=== PATIENT | male | born 1950 | race Caucasian/White ===

== ENCOUNTER 2018-01-29 13:49 | Inpatient (IN) | payer BC ==
[~2018-01-29] VITALS: Ht 182.9 cm; Wt 95.7 kg
[~2018-01-29 13:49] MED LIST: CARISOPRODOL 3350 MG PO; DESYREL150 MG PO; FLOMAX0.4 MG PO; LORTAB 5 MG/5001 TAB PO; WELLBUTRIN XL300 M1 PO
[2018-01-29 14:00] VITALS: BP 145/73
[2018-01-29] MEDS ORDERED: LIORESAL 10 MG10 MG PO (14:03)
[2018-01-29] MEDS ORDERED: LISINOPRIL10 MG PO (14:03)
[2018-01-29 15:15] LABS: ABSOLUTE EOSINOPHILS 0.3 thou/uL (0.0-0.7); ABSOLUTE MONOCYTES 0.9 thou/uL (0.0-1.2); BASOPHILS 0.5 %; EOSINOPHILS 3.2 %; HEMATOCRIT 42.2 % (42.0-52.0); HEMOGLOBIN 14.8 gm/dL (14.0-18.0); LYMPHOCYTES 24.3 %; MCH 31.5 pg (26.0-34.0); MCHC 35.1 g/dL (28.0-37.0); MPV 8.4 fl. (7.2-11.1); NUCLEATED RBCS 0 /100WBC; PLATELET COUNT* 226 thou/uL (150-400); RBC 4.69 mil/uL (4.50-6.00); RDW-CV 13.7 % (10.5-14.5); WBC 8.1 thou/uL (4.0-11.0)
[2018-01-29 15:22] LABS: CALCIUM 9.7 mg/dL (8.5-10.1); POTASSIUM 3.6 mmol/L (3.5-5.1)
[2018-01-29 15:26] LABS: ALBUMIN 3.6 g/dL (3.4-5.0); TOTAL BILIRUBIN 0.3 mg/dL (<0.1-1.0); TOTAL PROTEIN 7.5 g/dL (6.4-8.2)
[2018-01-29 17:25] VITALS: BP 189/110
[2018-01-29 21:00] VITALS: BP 152/81
[2018-01-30 03:25] VITALS: BP 130/72
[2018-01-30 08:00] VITALS: BP 169/92
[2018-01-30 08:07] LABS: HEMATOCRIT 44.1 % (42.0-52.0); HEMOGLOBIN 15.3 gm/dL (14.0-18.0); MCH 31.2 pg (26.0-34.0); MCHC 34.6 g/dL (28.0-37.0); MCV 90.1 fL (80.0-100.0); MPV 8.7 fl. (7.2-11.1); RBC 4.9 mil/uL (4.50-6.00); RDW-CV 13.6 % (10.5-14.5); WBC 6.5 thou/uL (4.0-11.0)
[2018-01-30 08:30] LABS: CALCIUM 9.5 mg/dL (8.5-10.1); MAGNESIUM 2.4 mg/dL (1.8-2.4); POTASSIUM 3.8 mmol/L (3.5-5.1)
[2018-01-30 17:00] VITALS: BP 108/91; BP 180/91
[2018-01-30 23:41] VITALS: BP 138/85
[2018-01-31 04:01] LABS: HEMATOCRIT 41.7 % (42.0-52.0); HEMOGLOBIN 14.5 gm/dL (14.0-18.0); MCH 31.3 pg (26.0-34.0); MCHC 34.6 g/dL (28.0-37.0); MCV 90.4 fL (80.0-100.0); MPV 8.6 fl. (7.2-11.1); RBC 4.62 mil/uL (4.50-6.00); RDW-CV 13.6 % (10.5-14.5); WBC 6.9 thou/uL (4.0-11.0)
[2018-01-31 04:28] LABS: MAGNESIUM 2.3 mg/dL (1.8-2.4); POTASSIUM 3.9 mmol/L (3.5-5.1)
[2018-01-31 08:20] VITALS: BP 157/87
[2018-01-31 17:35] VITALS: BP 170/90
[2018-01-31 19:41] VITALS: BP 179/89
[2018-01-31 23:49] VITALS: BP 140/75
[2018-02-01 08:45] VITALS: BP 148/95
[2018-02-01] MEDS ORDERED: MINOCYCLINE HC100 M2 PO (11:06)
[2018-02-01 11:07] VITALS: BP 148/95
--- NOTE | 2018-03-07 14:47 | CON ---
[address] [address] CONSULTATION Name: GEE AMBROSE Room: [address] IN .R.#: [id number] Admission: 01/29/18 Attend Phys: Sage Alcaraz, Discharge: 02/01/18 Date of : 54 Report #: [id number] THIS REPORT FOR: //name// CC: Eliecer Alcaraz DATE OF SERVICE: 01/30/2018 REASON FOR CONSULTATION: I was asked to evaluate the patient concerning right upper arm soft tissue abscess and cellulitis. HISTORY OF PRESENT ILLNESS: The patient is a 68-year-old who developed increased pain and erythematous nodule to the inner aspect of his upper right arm last week. This then progressed. He was seen in the outpatient department and placed on topical steroid. This continued to worsen and 2 days ago was seen in the outpatient clinic where incision and drainage was performed. Cultures were obtained. Given a dose of ceftriaxone and placed on Bactrim. No improvement over the next 24 hours. Hospitalized on 01/29/2018, placed on vancomycin. Continues to have drainage from the wound. No fever, chills or sweats. No specific injury noted. No prior history of skin or soft tissue abscesses. He is a nonsmoker with no diabetes. Does work in the yard on occasion. No specific tick or insect bites. PAST MEDICAL HISTORY: Back surgery, herniorrhaphy, tonsillectomy, deviated septum repair, gastroesophageal reflux with peptic ulcer disease, parathyroidectomy, nephrolithiasis. ALLERGIES: PENICILLIN WITH RASH, ALTHOUGH HE DOES TOLERATE AMOXICILLIN. MEDICATIONS: Included Flomax, Zestril, trazodone, Bactrim, now on vancomycin. FAMILY HISTORY: Noncontributory. SOCIAL HISTORY: No significant alcohol intake. Nonsmoker. REVIEW OF SYSTEMS: Negative for any cardiopulmonary, GI or complaints. PHYSICAL EXAMINATION: VITAL SIGNS: He is afebrile and hemodynamically stable. He was hypertensive earlier. HEENT: Unremarkable. NECK: Supple. LUNGS: Clear. HEART: Regular. ABDOMEN: Soft and nontender. SKIN: Notes an abscess with packing in place right [place] [address] CONSULTATION Name: ARNOLGEE Kinsey Room: [address]#: [id number] Admission: 01/29/18 Attend Phys: Sage Alcaraz, Discharge: 02/01/18 Date of : 54 Report #: [id number] Surrounding erythema consistent with cellulitis. No tender adenopathy in the axilla. Sensation in the hand intact. Pulses in the wrist normal. Range of motion in the shoulder and the arm unremarkable. LABORATORY STUDIES: Hemoglobin 15, WBC 6.5, platelet count 226,000. Creatinine 1. Liver function tests normal. IMPRESSION: A 68-year-old with soft tissue abscess, right upper inner arm. Most likely staphylococcal infection. Could be community-acquired methicillin-resistant Staphylococcus aureus. Recommend continuing vancomycin and packing the wound. We will obtain outside culture results that were obtained 48 hours ago. Hopefully, by Wednesday we will have these results. Then can proceed with outpatient treatment. <ELECTRONICALLY SIGNED> By: Slick Vallejo MD 03/07/18 1447 1408 2219Slick Vallejo MD /nt
== END 2018-02-01 13:22 | disposition home or self-care (01) | DRG 603 ==
LOC: M.ERS 13:49 → M.3W 15:52 → M.TBA-ER 15:52 → M.3W 17:06
PROVIDERS: Nurse Practitioner Family; ADMIT Family Medicine
DX: L03.113 Cellulitis of right upper limb (principal); L02.413 Cutaneous abscess of right upper limb; K21.9 Gastro-esophageal reflux disease without esophagitis; E89.0 Postprocedural hypothyroidism; I10 Essential (primary) hypertension; Z87.11 Personal history of peptic ulcer disease; Z87.442 Personal history of urinary calculi; Z88.0 Allergy status to penicillin; Z88.1 Allergy status to other antibiotic agents; Z79.899 Other long term (current) drug therapy

== ENCOUNTER → 2018-10-19 | Outpatient (CLI) | payer BC ==
[~2018-10-19] MED LIST changes: +LIORESAL 10 MG10 MG PO; +LISINOPRIL10 MG PO; +MINOCYCLINE HC100 M2 PO
--- NOTE | 2018-10-21 15:02 | SLEEP ---
[address] [address] SLEEP STUDY REPORT Name: GEE AMBROSE Room: [facility]#: [id number] Admission: 10/19/18 Attend Phys: Beronica Rai DO Discharge: Date of : 54 Report #: [id number] THIS REPORT FOR: //name// CC: Beronica Rai DO Eliecer Joseph This study has been reviewed in its entirety by a board certified sleep specialist DATE OF SERVICE: 10/19/2018 ATTENDING PHYSICIAN: Dr. Beronica Rai. The patient is 68 years old who weighs 220 pounds with a BMI of 29.8. The patient underwent diagnostic study performed at [facility]. During the night study, the patient spent 485 minutes in bed and slept for 354 minutes with a sleep efficiency of 73%. Sleep latency was 60 minutes with a REM latency of 155 minutes. Overall, sleep architecture showed normal stage 1 and stage 2 sleep, normal slow wave and normal REM sleep. During the night study, the patient had 1 obstructive apnea, no mixed or central apneas and 119 hypopneas. The patient's apnea hypopnea index was 20 per hour with a REM index of 36 per hour and a supine index of 66 per hour. Nocturnal oximetry study revealed an average oxygen saturation of 94%, with a lowest of 83%. Ten minutes were spent at an oxygen saturation of less than 89%. EKG monitoring revealed normal sinus rhythm. Average heart rate 55 beats per minute. No sustained arrhythmias observed. PLMS were seen at an index of 34 per hour and 14 per hour caused EEG arousals. The patient met the criteria for CPAP initiation, but it was late in the night of the study. As a result, CPAP could not be initiated. IMPRESSION: 1. Moderate sleep apnea-hypopnea syndrome with worsening during REM and supine sleep. Total AHI at 20 per hour, with a REM AHI of 36 per hour and a supine AHI of 66 per hour. 2. Mild nocturnal hypoxia secondary to obstructive sleep apnea. 3. Moderate PLMS. RECOMMENDATIONS: [place] [address] SLEEP STUDY REPORT Name: GEE AMBROSE Room: [facility]#: [id number] Admission: 10/19/18 Attend Phys: Beronica Rai DO Discharge: Date of : 54 Report #: [id number] 1. The patient would benefit from return to the sleep lab for CPAP titration. 2. Once optimal CPAP pressure is achieved, then follow up in 4-6 weeks to assess compliance with CPAP and to document clinical improvement. 3. Weight loss is strongly advised. 4. Avoid supine sleep. 5. Avoid NUCLEAR CONTROL ROOM OPERATOR depressants. 6. Cautioned regarding driving until symptoms of sleep apnea have resolved with the use of CPAP. 7. The patient should also be further evaluated for symptoms of restless legs during the day. <ELECTRONICALLY SIGNED> By: Moose Younger MD 10/21/18 1502 1320 1351Aman Jamar Younger MD /nt
== END ==
LOC: M.SLEEPLAB 19:39
DX: G47.33 Obstructive sleep apnea (adult) (pediatric) (principal); Z13.220 Encounter for screening for lipoid disorders; G47.61 Periodic limb movement disorder; G47.34 Idiopathic sleep related nonobstructive alveolar hypoventilation; R06.83 Snoring; I15.9 Secondary hypertension, unspecified; Z87.891 Personal history of nicotine dependence; Z79.899 Other long term (current) drug therapy; J32.9 Chronic sinusitis, unspecified

== ENCOUNTER → 2018-11-16 | Outpatient (CLI) | payer BC, MEDICARE ==
--- NOTE | 2018-11-17 14:54 | SLEEP ---
[address] [address] SLEEP STUDY REPORT Name: GEE AMBROSE Room: [facility]#: [id number] Admission: 11/16/18 Attend Phys: Beronica Rai DO Discharge: Date of : 54 Report #: [id number] THIS REPORT FOR: //name// CC: Beronica Ria DO Eliecer Joseph This study has been reviewed in its entirety by a board certified sleep specialist DATE OF SERVICE: 11/16/2018 ATTENDING PHYSICIAN: Beronica Rai DO The patient is a 68-year-old who weighs 228 pounds with a BMI of 29.8. The patient has history of sleep apnea and was referred for CPAP titration study. Results of diagnostic study were not available at the time of dictation. During the night of the study, the patient spent 411 minutes in bed and slept for 371 minutes with a sleep efficiency of 90%. Sleep latency was 6.7 minutes with a REM latency of 64 minutes. Overall sleep architecture showed normal stage 1 and stage 2 sleep, increased N3 sleep and normal REM sleep. EKG monitoring revealed an average heart rate of 52 beats per minute. No sustained arrhythmias observed. PLMS were seen at an index of 24 per hour and 7 per hour caused EEG arousals. The patient was started on CPAP at 5 cm water and titrated up to 7 cm water. At the final pressure, the patient slept for 204 minutes. The patient had 48 minutes of lateral REM sleep. The patient's AHI was reduced to 0 per hour and oxygen saturation remained above 90%. IMPRESSION: 1. Sleep apnea diagnosed previously. 2. Moderate periodic limb movements of sleep. RECOMMENDATIONS: 1. CPAP at 7 cm water completely eliminated the patient's sleep apnea and should be used on a nightly basis. 2. Follow up in 4-6 weeks to assess compliance with CPAP and to document clinical improvement. 3. Weight loss is strongly advised. 4. Avoid GENERAL DENTIST/OWNER depressants. 5. Cautioned regarding driving until symptoms of sleep apnea have resolved [place] [address] SLEEP STUDY REPORT Name: GEE AMBROSE Room: [facility]#: [id number] Admission: 11/16/18 Attend Phys: Beronica Rai DO Discharge: Date of : 54 Report #: [id number] 6. PLMS does not need to be treated unless the patient has symptoms of restless legs during the day. <ELECTRONICALLY SIGNED> By: Moose Younger MD 11/17/18 1454 1301 1420Moose Younger MD /nt
== END ==
LOC: M.SLEEPLAB 11-09 21:00
DX: G47.30 Sleep apnea, unspecified (principal); G47.61 Periodic limb movement disorder; Z68.29 Body mass index [BMI] 29.0-29.9, adult

== ENCOUNTER 2020-01-22 16:37 | Inpatient (IN) | payer MEDICARE ==
[~2020-01-22] VITALS: Ht 182.9 cm; Wt 99.8 kg
[2020-01-22 16:47] VITALS: BP 179/131
[2020-01-22 17:09] LABS: ABSOLUTE BASOPHILS 0.1 thou/uL (0.0-0.2); ABSOLUTE EOSINOPHILS 0.3 thou/uL (0.0-0.7); ABSOLUTE MONOCYTES 0.8 thou/uL (0.0-1.2); ABSOLUTE NEUTROPHILS 4.7 thou/uL (1.6-8.1); BASOPHILS 0.7 %; HEMATOCRIT 44.6 % (42.0-52.0); HEMOGLOBIN 15.5 gm/dL (14.0-18.0); LYMPHOCYTES 25.4 %; MCH 31.4 pg (26.0-34.0); MCHC 34.8 g/dL (28.0-37.0); MCV 90.4 fL (80.0-100.0); MONOCYTES 9.9 %; MPV 8.7 fl. (7.2-11.1); NUCLEATED RBCS 0 /100WBC; PLATELET COUNT* 189 thou/uL (150-400); RBC 4.93 mil/uL (4.50-6.00); WBC 7.8 thou/uL (4.0-11.0)
[2020-01-22 17:18] LABS: CALCIUM 8.7 mg/dL (8.5-10.1); CREATININE 1.2 mg/dL (0.6-1.3); POTASSIUM 3.5 mmol/L (3.5-5.1)
[2020-01-22 17:20] LABS: APTT 27.1 Seconds (25.0-31.3); PROTIME 10.7 Seconds (9.20-11.50)
[2020-01-22 17:28] LABS: ALBUMIN 3.8 g/dL (3.4-5.0); MAGNESIUM 2.2 mg/dL (1.8-2.4); TOTAL BILIRUBIN 0.5 mg/dL (<0.1-1.0); TOTAL PROTEIN 7.7 g/dL (6.4-8.2)
[2020-01-22 18:58] LABS: URINE BILIRUBIN NEGATIVE (Negative); URINE BLOOD TRACE (Negative); URINE CLARITY CLEAR; URINE COLOR YELLOW; URINE GLUCOSE-RANDOM NEGATIVE (Negative); URINE KETONES NEGATIVE (Negative); URINE LEUKOCYTES-REFLEX NEGATIVE (Negative); URINE NITRITE-REFLEX NEGATIVE (Negative); URINE PROTEIN 1+ (Negative); URINE UROBILINOGEN 0.2 E.U./dl (0.2-1.0)
--- NOTE | 2020-01-22 19:05 | NUR ---
#2 NITROGLYCERIN 0.4MG SL GIVEN--B/P 148/105
[2020-01-22 19:52] VITALS: BP 142/91
[2020-01-22 20:45] VITALS: BP 134/100
--- NOTE | 2020-01-22 20:45 | NUR ---
RECEIVED REPORT AND TO ROOM. NO ACUTE DISTRESS. TELEMETRY APPLIED AND SHOWING A-FIB WITH RATE 130'S. DENIES CHEST PAIN OR SOA. O2 ON AT 2L/NC. PT HAS HX OF MRSA IN WOUND SO PLACED INTO ISOLATION. DISCUSSED POSS OF PROCEDURE TOMORROW SO NPO AFTER MN. SEE ADMISSION ASSESSMENT AND HX. WILL CONT TO MONITOR AND ASSIST NEEDED.
[2020-01-23 00:41] VITALS: BP 124/84
[2020-01-23 05:18] VITALS: BP 135/94
--- NOTE | 2020-01-23 05:33 | NUR ---
SLEPT WELL TONIGHT. TELEMETRY CONT TO SHOW A-FIB WITH RATE STILL IN 130'S WITH CARDIZEM GTT INFUSING AT 15 MG/HR. DENIES CP OR SOA. HS GOALS OF REST AND SAFETY ACHIEVED.
[2020-01-23 06:19] LABS: CALCIUM 8.5 mg/dL (8.5-10.1); MAGNESIUM 2.1 mg/dL (1.8-2.4); POTASSIUM 3.4 mmol/L (3.5-5.1)
[2020-01-23 08:00] VITALS: BP 142/97
[2020-01-23 09:36] LABS: CHOLESTEROL 140 mg/dL (<200); HDL CHOLESTEROL 52 mg/dL (>40); LDL CHOLESTEROL 78 mg/dL (<100); TC:HDL 2.7 Ratio (Not establshd); TRIGLYCERIDE 50 mg/dL (<150); VLDL 10 mg/dL (<40)
[2020-01-23 09:37] LABS: SERUM ASSESSMENT Clear
[2020-01-23 12:19] VITALS: BP 134/100
--- NOTE | 2020-01-23 15:32 | NUR ---
CM spoke with Pt via phone. Pt is A&O. Resides at home with his . Independent. Pt uses a cpap at night. No hx of HH or SNF. Goal is home at id. Following.
--- NOTE | 2020-01-23 16:14 | 2DMMODE ---
[place] [address] 2 D/M-MODE ECHOCARDIOGRAM Name: GEE AMBROSE Room: [address] IN [facility].#: [id number] Admission: 01/22/20 Attend Phys: Abelino Woods, Discharge: Date of : 54 Date of Service: 01/23/20 1613 Report #: [id number] THIS REPORT FOR: cc: Eliecer Joseph Steve T. DO Liston, Michael J. MD [facility] ~ APPROVED REPORT Study performed: 01/23/2020 13:51:10 EXAM: Comprehensive 2D, Doppler, and color-flow Echocardiogram Patient Location: In-Patient BSA: 2.23 HR: 110 bpm BP: 135/94 mmHg Other Information Study Quality: Good Indications Atrial Fibrillation 2D Dimensions IVSd: 13.08 (7-11mm) LVOT Diam: 22.00 (18-24mm) LVDd: 51.43 mm PWd: 11.40 (7-11mm) Ascending Ao: 29.21 (22-36mm) LVDs: 33.14 (25-40mm) Aortic Root: 28.41 mm Volumes Left Atrial Volume (Systole) LA ESV Index: 19.90 mL/m2 Aortic Valve AoV Peak Douglas.: 1.09 m/s AO Peak Gr.: 4.72 mmHg LVOT Max P.17 mmHg AO Mean Gr.: 2.71 mmHg LVOT Mean P.47 mmHg LVOT Max V: 0.89 m/s AO V2 VTI: 17.62 cm LVOT Mean V: 0.55 m/s SHREYA (VTI): 3.10 cm2 LVOT V1 VTI: 14.38 cm Mitral Valve E/A Ratio: 2.12 [place] [address] 2 D/M-MODE ECHOCARDIOGRAM Name: GEE AMBROSE Room: [address] IN [facility]#: [id number] Admission: 01/22/20 Attend Phys: Abelino Woods, Discharge: Date of : 54 Date of Service: 01/23/20 1613 Report #: [id number] MV Decel. Time: 153.21 ms MV E Max Douglas.: 0.70 m/s MV PHT: 44.43 ms MVA (PHT): 4.95 cm2 TDI E/Lateral E': 10.00 E/Medial E': 8.75 Medial E' Douglas.: 0.08 m/s Lateral E' Douglas.: 0.07 m/s Pulmonary Valve PV Peak Douglas.: 0.99 m/s PV Peak Gr.: 3.92 mmHg Tricuspid Valve RAP Estimate: 20.00 mmHg TR Peak Gr.: 26.60 mmHg RVSP: 46.60 mmHg PA Pressure: 46.60 mmHg Left Ventricle The left ventricle is normal size. There is normal LV segmental wall motion. Mild concentric left ventricular hypertrophy. The left ventricular systolic function is normal. LVEF is 55-60%. This study is not technically sufficient to allow evaluation of the LV diastolic function due to atrial fibrillation. Right Ventricle Right ventricle is dilated. The right ventricular systolic function is normal. Atria The left atrium size is normal. Interatrial septum not well visualized. Right atrium is dilated. Aortic Valve The aortic valve is normal in structure. No aortic regurgitation is present. There is no aortic valvular stenosis. Mitral Valve The mitral valve is normal in structure. Trace mitral regurgitation. No evidence of mitral valve stenosis. Tricuspid Valve The tricuspid valve is normal in structure. Mild tricuspid regurgitation. Pulmonic [place] [address] 2 D/M-MODE ECHOCARDIOGRAM Name: GEE AMBROSE Room: [address] IN [facility]#: [id number] Admission: 01/22/20 Attend Phys: Abelino Woods, Discharge: Date of : 54 Date of Service: 01/23/20 1613 Report #: [id number] The pulmonary valve is normal in structure. There is no pulmonic valvular regurgitation. Great Vessels The aortic root is normal in size. The IVC is dilated. Pericardium There is no pericardial effusion. <Conclusion> The left ventricle is normal size. Mild concentric left ventricular hypertrophy. The left ventricular systolic function is normal. LVEF is 55-60%. Right ventricle is dilated. Right atrium is dilated. Trace mitral regurgitation. Mild tricuspid regurgitation. The IVC is dilated. <ELECTRONICALLY SIGNED> By: Braeden Krueger MD, FACC 01/23/20 1613 1613 1613 Braeden Krueger MD, FACC /INF
[2020-01-23 16:29] VITALS: BP 145/76
--- NOTE | 2020-01-23 18:00 | NUR ---
PATINET RESTING IN BED. UP AD TRACY IN ROOM. SOTALOL LOAD STARTED, ORDERS RECEIVED FOR TING AND CARDIOVERSION TOMORROW AND NPO AFTER MIDNIGHT. AOX4. VSS AND PATIENT IN NOAPPARNET SIGNS OF DISTRRESS AT THIS TIME. 2L PER NASAL CANULA. HOURLYK ROUNDING COMPLETED FOR PATIENT SAFETY.
--- NOTE | 2020-01-23 19:18 | EKG ---
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 : 1950 Requested By: Danilo Corea Order Number: [id number] MD: Braeden Krueger Measurements Intervals [place] Rate: 139 P: 0 MT: 196 QRS: -24 QRSD: 93 T: 97 QT: 352 QTc: 536 Interpretive Statements Atrial flutter with 2-1 conduction Borderline left axis deviation Repol abnrm suggests ischemia, diffuse leads Prolonged QT interval No previous ECG available for comparison Electronically Signed On 01-23-2020 17:41:32 CDT by Braeden Krueger [email or web address] <ELECTRONICALLY SIGNED> By: Braeden Krueger MD, FACC 01/23/20 1741 1642 1642 Braeden Krueger MD, [facility] /EPI
[2020-01-23 19:40] VITALS: BP 148/86
[2020-01-24] VITALS: BP 134/107
[2020-01-24 04:00] VITALS: BP 138/104
[2020-01-24 04:45] LABS: CALCIUM 8.3 mg/dL (8.5-10.1); MAGNESIUM 2.2 mg/dL (1.8-2.4); POTASSIUM 3.8 mmol/L (3.5-5.1)
--- NOTE | 2020-01-24 06:51 | NUR ---
PT SLEPT MOST OF SHIFT. ASSESSMENT DOCUMENTED. MEDS GIVEN PER E-SEP. IV PATENT. NO REPORTS OF PAIN THIS SHIFT. PT REMAINED NPO AFTER MIDNIGHT. WILL CONTINUE WITH PLAN OF CARE.
[2020-01-24 08:00] VITALS: BP 142/110
--- NOTE | 2020-01-24 11:44 | NUR ---
Per , Pt in rapid Afib, cardiology following.
[2020-01-24 12:32] VITALS: BP 141/103
--- NOTE | 2020-01-24 15:56 | NUR ---
BERENICE RESTING IN BED. UP AD TRACY IN ROOM. A FLUTTER ON MONITOR WIT PLANS FOR TING CARDIOVERSION ON 01/24/[address] GANNON. VSS AND PATIENT HEART RATE CONSISTENTLY IN THE 130'S, CARDIOLOGY AWARE. HOURLY RONDING COMPLETED FOR PATIENT SAFETY.
[2020-01-24 16:51] VITALS: BP 161/119
[2020-01-24 20:00] VITALS: BP 144/97
[2020-01-25] VITALS (11 sets, daily range): BP systolic 114–167; BP diastolic 40–132
[2020-01-25 05:58] LABS: CALCIUM 8.7 mg/dL (8.5-10.1); CREATININE 0.9 mg/dL (0.6-1.3); MAGNESIUM 2.2 mg/dL (1.8-2.4); POTASSIUM 4.1 mmol/L (3.5-5.1)
--- NOTE | 2020-01-25 06:06 | NUR ---
No acute event this shift. Pt denies pain, 2L NC. Pt A flutter on tele. Pt NPO for TING Cardioversion. Will continue to monitor.
--- NOTE | 2020-01-25 09:06 | EKG ---
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1950 Requested By: Dora Norotn Order Number: [id number] Reading MD: Braeden Krueger Measurements Intervals [place] Rate: 123 P: NV: QRS: -28 QRSD: 123 T: 199 QT: 336 QTc: 481 Interpretive Statements Atrial flutter with predominant 2:[address] depression, consider ischemia, diffuse lds Borderline prolonged QT interval Compared to ECG 01/22/2020 16:42:39 2:1 AV block now present ST (T wave) deviation now present Possible ischemia still present Electronically Signed On 01-25-2020 9:06:09 CDT by Braeden Krueger [email or web address] <ELECTRONICALLY SIGNED> By: Braeden Krueger MD, FACC 01/25/20905 6 6 Braeden Krueger MD, FAC /EPI
--- NOTE | 2020-01-25 09:18 | NUR ---
ASSUMED CARE OF PT AT 0730. PT RESTING IN BED. PT NPO FOR TING/CARDIOVERSION TODAY. CONSENT SIGNED AND IN FRONT OF CHART. PT IN CONTACT ISOLATION FOR HISTORY MRSA. PT TRACING AFLUTTER ON THE WELT STITCHER. RATE IN THE 120'S. PT ON RA SAT 95%. DENIES ANY SHORTNESS OF BREATH OR PAIN AT THIS TIME. PT UP AD TRACY IN ROOM. CARDIOLOGY CONSULT IN PLACE. PT GOAL FOR TODAY IS COMPLETE TING/CARDIOVERSION, CONVERT TO SINUS RHYTHM AND REMAIN IN SINUS RHYTHM. AM ASSESSMENT CHARTED. MEDICATIONS PER SEP. PT REPOSITIONS SELF. HOURLY ROUNDING OBSERVED. BED IN LOW POSITION. CALL LIGHT WITHIN REACH. WILL CONTINUE PLAN OF CARE.
[2020-01-25] MEDS ORDERED: SORINE 80 MG TA80 M1 PO (11:27)
[2020-01-25] MEDS ORDERED: ELIQUIS5 MG PO (11:27)
--- NOTE | 2020-01-25 14:16 | EKG ---
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1950 Requested By: Dora Norton Order Number: [id number] Angela MD: Italo Sloan Measurements Intervals [place] Rate: 57 P: 42 IL: 152 QRS: -32 QRSD: 92 T: 217 QT: 389 QTc: 379 Interpretive Statements Sinus rhythm Probable left atrial enlargement LVH with secondary repolarization abnormality Compared to ECG 01/25/2020 08:27:17 Left ventricular hypertrophy now present Early repolarization now present Atrial flutter no longer present 2:1 AV block no longer present ST (T wave) deviation persists Electronically Signed On 01-25-2020 14:16:11 CDT by Italo Sloan [email or web address] <ELECTRONICALLY SIGNED> By: Italo Sloan MD, [facility] 01/25/20 1416 1205 1205 Italo Sloan MD, [facility] /EPI
--- NOTE | 2020-01-25 15:01 | NUR ---
PT HAD TING/CARDIOVERSION TODAY WITH SUCCESS. PT CURRENTLY TRACING SR ON THE MANAGER STEEL. DISCHARGE ORDERS RECEIVED. DISCHARGE INSTRUCTIONS, CARE NOTES, SCRIPTS AND FOLLOW UP APPTS GIVEN TO PT. PT COMMUNICATES UNDERSTANDING OF DISCHARGE TEACHING. IV AND MANAGER STEEL REMOVED. PT DISCHARGED WITH ALL BELONGINGS AND PAPERWORK VIA WHEELCHAIR WITH NURSING STAFF TO SPOUSE OWN PERSONAL VEHICLE.
--- NOTE | 2020-01-25 18:13 | TEE ---
[place] [address] TRANSESOPHAGEAL ECHOCARDIOGRAM Name: GEE AMBROSE Kinsey Room: [address]#: [id number] Admission: 01/22/20 Attend Phys: Abelino Woods, Discharge: 01/25/20 Date of : 54 Date of Service: 01/25/20 1812 Report #: [id number] THIS REPORT FOR: cc: Eliecer Joseph Steve T. DO Liston, Michael J. MD [facility] ~ APPROVED REPORT Study performed: 01/25/2020 11:00:52 EXAM: Transesophageal Echocardiogram Patient Location: In-Patient BSA: 2.22 HR: 130 bpm BP: 105/76 mmHg Other Information Study Quality: Good Indications Atrial Fibrillation Echo Enhancing Agent Indication: Rule out Shunt Agent(s) / Amount(s) Used: Agitated Saline cc Procedure After obtaining informed consent, patient underwent transesophageal echo in the [employer]. Type of Sedation : Conscious Sedation Sedation was achieved intravenously with: Versed (3) Fentanyl (75) Echo enhancement indication: R/O Septal defect. Echo enhancement agent administered: Agitated Saline The TING was performed without complications. Throughout the procedure, the blood pressure, pulse oximetry, cardiac rhythm, and rate were monitored. The patient tolerated the procedure without adverse effects. Recovery from conscious sedation was uneventful and vital signs were stable. Left Ventricle The left ventricle is normal size. There is global hypokinesis without obvious focal wall motion abnormality. There is normal left [address] [address] TRANSESOPHAGEAL ECHOCARDIOGRAM Name: GEE AMBROSE Room: [address]#: [id number] Admission: 01/22/20 Attend Phys: Abelino Woods, Discharge: 01/25/20 Date of : 54 Date of Service: 01/25/20 1812 Report #: [id number] ventricular wall thickness. Left ventricular ejection fraction is moderate to severely decreased. LVEF is 30-35%. Right Ventricle The right ventricle is normal size. The right ventricular systolic function is normal. Atria The left atrium size is normal. No thrombus is visualized in the left atrium or appendage. Injection of bubbles documented no interatrial shunt. The right atrium size is normal. Aortic Valve The aortic valve is normal in structure. No aortic regurgitation is present. There is no aortic valvular stenosis. Mitral Valve The mitral valve is normal in structure. Mild mitral regurgitation. No evidence of mitral valve stenosis. Tricuspid Valve The tricuspid valve is normal in structure. Trace tricuspid regurgitation. Pulmonic Valve The pulmonary valve is normal in structure. There is no pulmonic valvular regurgitation. <Conclusion> The left ventricle is normal size. There is normal left ventricular wall thickness. Left ventricular ejection fraction is moderate to severely decreased. LVEF is 30-35%. There is global hypokinesis without obvious focal wall motion abnormality. Injection of bubbles documented no interatrial shunt. Mild mitral regurgitation. Trace tricuspid regurgitation. No thrombus is visualized in the left atrium or appendage. <ELECTRONICALLY SIGNED> By: Braeden Krueger MD, FACC 01/25/201811 11 11 Braeden Krueger MD, FACC /INF
== END 2020-01-25 14:50 | disposition home or self-care (01) | DRG 309 ==
LOC: M.ERS 16:37 → M.TBA-ER 18:48 → M.2W 18:48
PROVIDERS: Emergency Medicine Emergency Medical Services; Registered Nurse; ADMIT Internal Medicine; ATTEND Internal Medicine
PROC: 5A2204Z Restoration of Cardiac Rhythm, Single (ICD-10-PCS; principal; 2020-01-25)
PROC: B24BZZ4 Ultrasonography of Heart with Aorta, Transesophageal (ICD-10-PCS; principal; 2020-01-25)
DX: I48.91 Unspecified atrial fibrillation (principal); I25.110 Atherosclerotic heart disease of native coronary artery with unstable angina pectoris; D68.69 Other thrombophilia; I16.0 Hypertensive urgency; K21.9 Gastro-esophageal reflux disease without esophagitis; G47.33 Obstructive sleep apnea (adult) (pediatric); E66.9 Obesity, unspecified; Z20.828 Contact with and (suspected) exposure to other viral communicable diseases; K27.9 Peptic ulcer, site unspecified, unspecified as acute or chronic, without hemorrhage or perforation; I48.92 Unspecified atrial flutter; I10 Essential (primary) hypertension; Z88.0 Allergy status to penicillin; Z79.01 Long term (current) use of anticoagulants; Z68.29 Body mass index [BMI] 29.0-29.9, adult

== ENCOUNTER → 2020-03-13 | Outpatient (CLI) | payer MEDICARE ==
[~2020-03-13] MED LIST changes: +ELIQUIS5 MG PO; +SORINE 80 MG TA80 M1 PO
--- NOTE | 2020-03-13 16:17 | 2DMMODE ---
[place] [address] 2 D/M-MODE ECHOCARDIOGRAM Name: GEE AMBROSE Room: [facility]#: [id number] Admission: 03/13/20 Attend Phys: Braeden Krueger, Discharge: Date of : 54 Date of Service: 03/13/20 1617 Report #: [id number] THIS REPORT FOR: cc: Eliecer Joseph Steve T. DO Blick, David R. MD [facility] ~ APPROVED REPORT Study performed: 03/13/2020 13:27:22 EXAM: Comprehensive 2D, Doppler, and color-flow Echocardiogram Patient Location: Out-Patient Status: routine BSA: 2.20 HR: 61 bpm Rhythm: NSR Other Information Study Quality: Good Indications Atrial Fibrillation Chest Pain 2D Dimensions IVSd: 11.14 (7-11mm) LVOT Diam: 21.37 (18-24mm) LVDd: 55.40 mm PWd: 11.50 (7-11mm) Ascending Ao: 34.91 (22-36mm) LVDs: 36.39 (25-40mm) Aortic Root: 30.32 mm Volumes Left Atrial Volume (Systole) LA ESV Index: 34.90 mL/m2 Aortic Valve AoV Peak Douglas.: 1.14 m/s AO Peak Gr.: 5.22 mmHg LVOT Max P.03 mmHg AO Mean Gr.: 2.83 mmHg LVOT Mean P.23 mmHg LVOT Max V: 0.87 m/s AO V2 VTI: 28.90 cm LVOT Mean V: 0.49 m/s SHREYA (VTI): 2.39 cm2 LVOT V1 VTI: 19.28 [place] [address] 2 D/M-MODE ECHOCARDIOGRAM Name: GEE AMBROSE Room: [facility]#: [id number] Admission: 03/13/20 Attend Phys: Braeden Krueger, Discharge: Date of : 54 Date of Service: 03/13/20 1617 Report #: [id number] Mitral Valve E/A Ratio: 1.50 MV Decel. Time: 227.91 ms MV E Max Douglas.: 0.61 m/s MV PHT: 66.09 ms MVA (PHT): 3.33 cm2 TDI E/Lateral E': 5.08 E/Medial E': 5.08 Medial E' Douglas.: 0.12 m/s Lateral E' Douglas.: 0.12 m/s Pulmonary Valve PV Peak Douglas.: 1.04 m/s PV Peak Gr.: 4.29 mmHg Left Ventricle The left ventricle is normal size. There is normal LV segmental wall motion. Mild concentric left ventricular hypertrophy. Left ventricular systolic function is borderline. LVEF is 50-55%. The left ventricular diastolic function is normal. Right Ventricle Right ventricle is dilated. The right ventricular systolic function is normal. Atria Left atrium is mildly dilated. Right atrium is dilated. Aortic Valve The aortic valve is normal in structure. No aortic regurgitation is present. There is no aortic valvular stenosis. Mitral Valve The mitral valve is normal in structure. Trace mitral regurgitation. No evidence of mitral valve stenosis. Tricuspid Valve The tricuspid valve is normal in structure. Unable to assess PA pressure. Trace tricuspid regurgitation. Pulmonic Valve The pulmonary valve is normal in structure. There is no pulmonic valvular regurgitation[place] [address] 2 D/M-MODE ECHOCARDIOGRAM Name: GEE AMBROSE Kinsey Room: [facility]#: [id number] Admission: 03/13/20 Attend Phys: Braeden Krueger, Discharge: Date of : 54 Date of Service: 03/13/20 1617 Report #: [id number] The aortic root is normal in size. IVC is normal in size and collapses >50% with inspiration. Pericardium There is no pericardial effusion. <Conclusion> Mild concentric left ventricular hypertrophy. LVEF is 50-55%. Left atrium is mildly dilated. <ELECTRONICALLY SIGNED> By: Reinaldo Urena MD, [facility] 03/13/201616 16 16 Reinaldo Urena MD, [facility] /INF
--- NOTE | 2020-03-14 18:00 | CARDNUC ---
[place] [address] CARDIAC NUCLEAR IMAGING REPORT Name: GEE AMBROSE Room: [facility]#: [id number] Admission: 03/13/20 Attend Phys: Braeden Krueger, Discharge: Date of : 54 Date of Service: 03/14/20 1759 Report #: [id number] THIS REPORT FOR: cc: Eliecer Joseph Steve T. DO Biggs, F. Douglas MD [facility] ~ APPROVED REPORT Study performed: 03/13/2020 14:34:37 Exam: Nuclear Stress Test Indication: HX AFIB/AFLUTTER, RVR, CHEST PAIN, DYSPNEA, NAUSEA, DIAPHORESIS. Patient Location: Out-Patient Stress Tech: Meghann Sandoval Stress Nurse: Farhana Jackson Tech:BLADIMIR Wolff Ht: 6 ft 0 in Wt: 216 lbs BSA: 2.20 m2 BMI: 29.29 Medical History Medical History: Angina, Atrial Fibrillation, Aflutter, RVR, Cardiomyopathy, Fatigue, HTN, SOB, BRENDA/CPAP, LIGHTHEADEDNESS, diaphoresis, nausea, back surgery/pain, polyosteroarthritis, former smoker, poor historian/forgetful, Bradycardia. Medications: Amlodipine, Eliquis, Lisinopril, Sotalol, [place] 3 Fatty Acids. Allergies: Penicillin G Cardiac Risk Factors: Age, HTN, SOB, Past Smoker, Afib/Aflutter, RVR, Cardiomyopathy, Bradycardia. Previous Cardiac Procedures: None Pretest Chest Pain Characteristics: No chest pain Exercise History: Indeterminate Physical Disabilities: HX AFib/Aflutter, RVR, Back pain. Meds Held (24 hrs): None Stress Test Details Stress Test: Pharmacologic stress testing performed using 0.4 mg of regadenoson per 5 mL given IV over 10 seconds. Reason for pharmacologic stress test: HX AFib/Aflutter, RVR, Back pain.. HR Resting HR: 54 bpm Max Heart Rate (APMHR): 152 [place] [address] CARDIAC NUCLEAR IMAGING REPORT Name: GEE AMBROSE Room: [facility]#: [id number] Admission: 03/13/20 Attend Phys: Braeden Krueger, Discharge: Date of : 54 Date of Service: 03/14/20 1759 Report #: [id number] Max HR Achieved: 85 bpm Target HR (85% APMHR): 129 bpm % of APMHR: 55 Recovery HR: 69 bpm HR response to stress: Normal HR response to stress BP Resting BP: 152/87 mmHg Max BP: 142/77 mmHg BP response to stress: Normal blood pressure response to stress. ECG Resting ECG: Sinus Bradycardia, otherwise normal EKG Stress ECG: Sinus Rhythm minimal nonspecific ST changes ST Change: Upsloping ST depression Maximum ST Deviation: 0.5 mm Arrhythmia: None Recovery ECG: Sinus Rhythm, normal EKG Recovery ST Change: None Recovery Arrhythmia: VPC Clinical Reason for Termination: Completed protocol Stress Symptoms: Headache, Chest feeling light. Exercise duration: 00 min 00 sec Exercise capacity: 1.00 METs Nurse Comments A 70 YEAR OLD MALE PRESENTED FOR A SITTING [place] R/T HX AFIB/AFLUTTER, RVR, CHEST PAIN, DYSPNEA, NAUSEA, DIAPHORESIS. TEST WELL TOLERATED. RECOVERY UNREMARKABLE WITH PO CAFFEINE. PATIENT WAS ESCORTED BY STAFF TO NUCLEAR MEDICINE FOR IMAGING. PATIENT WAS STABLE AND STATED HE FELT GOOD AT THAT TIME. Stress ECG Conclusion Clinical: Non-ischemic Non-diagnostic pharmacologic EKG stress due to failure to attain target HR. NM EXAM: Myocardial Perfusion REST/STRESS Imaging Protocol: Rest Tc-99m/Stress Tc-99m 1 day Resting Data Rest SPECT myocardial perfusion imaging [place] [address] CARDIAC NUCLEAR IMAGING REPORT Name: GEE AMBROSE Room: [facility]#: [id number] Admission: 03/13/20 Attend Phys: Braeden Krueger, Discharge: Date of : 54 Date of Service: 03/14/20 1759 Report #: [id number] position 30 minutes following the intravenous injection of 10.4 mCi of Tc-99m Sestamibi. Time of rest injection: 1245 Date: 03/13/2020 The images were gated to evaluate regional wall motion and calculate left ventricular ejection fraction. Administration Route: IV Administration Site: Right Hand Pharmacologic Stress Pharmacologic stress test was performed by injecting Regadenoson 0.4 mg IV push followed by the intravenous injection of 33.8 mCi of Tc-99m Sestamibi. Time of stress injection: 1425 Date: 03/13/2020 Administration Route: IV Administration Site: Right Hand Gated Stress SPECT was performed 40 minutes after stress injection. The images were gated to evaluate regional wall motion and calculate left ventricular ejection fraction. Prone imaging was performed. Study Quality Study: Good Artifact: Mild Diaphragmatic artifact Lung Uptake: Normal Study Data At rest, the left ventricular ejection fraction was 40%.. Post stress, the left ventricular ejection was 47%.. SSS: 3 SRS: 2 SDS: 1 TID = 0.99. Perfusion The resting study demonstrated a small mild inferior defect. The post-rest images also demonstrate a small mild inferior defect. Prone images were normal. There therefore no reversible defects seen and no evidence of myocardial ischemia. There was mild diaphragmatic attenuation artifact seen on both the rest and stress images. Images were reviewed using [employer]. Wall Motion Mild global hypokinesis was seen on the rest images and very mild global hypokinesis was seen on [place] [address] CARDIAC NUCLEAR IMAGING REPORT Name: GEE AMBROSE Room: [facility] RTIA John#: [id number] Admission: 03/13/20 Attend Phys: Braeden Krueger, Discharge: Date of : 54 Date of Service: 03/14/20 1759 Report #: [id number] Nuclear Conclusion ECG Findings: non-diagnostic Clinical Findings: negative for ischemia Nuclear Findings: negative for ischemia Exercise Capacity: not assessed Left Ventricular Function: abnormal Risk Study: low Normal study. No scintigraphic evidence for myocardial ischemia or scar. There was mildly decreased left ventricular systolic function. <Conclusion> Clinical: Non-ischemic Non-diagnostic pharmacologic EKG stress due to failure to attain target HR. <ELECTRONICALLY SIGNED> By: Aubrie Dickinson MD, FACC 03/14/201758 58 58 Aubrie Dickinson MD, FACC /INF
== END ==
LOC: M.NUC 02-27 13:20 → M.CRD 10:00 → M.NUC 13:00
PROVIDERS: ATTEND Internal Medicine Cardiovascular Disease
DX: I48.91 Unspecified atrial fibrillation (principal)

== ENCOUNTER → 2020-09-04 | Outpatient (CLI) | payer MEDICARE ==
--- NOTE | 2020-09-04 09:35 | 2DMMODE ---
[place] [address] 2 D/M-MODE ECHOCARDIOGRAM Name: GEE AMBROSE JR Room: [facility]#: [id number] Admission: 09/04/20 Attend Phys: Braeden Krueger, Discharge: Date of : 54 Date of Service: 09/04/20 0935 Report #: [id number] THIS REPORT FOR: cc: Eliecer Joseph Steve T. DO Blick, David R. MD [facility] ~ APPROVED REPORT Study performed: 09/04/2020 07:51:22 EXAM: Comprehensive 2D, Doppler, and color-flow Echocardiogram Patient Location: Out-Patient BSA: 2.24 HR: 54 bpm BP: 140/75 mmHg Other Information Study Quality: Good Indications Atrial Fibrillation 2D Dimensions IVSd: 12.94 (7-11mm) LVOT Diam: 20.66 (18-24mm) LVDd: 51.04 mm PWd: 11.64 (7-11mm) Ascending Ao: 32.85 (22-36mm) LVDs: 29.51 (25-40mm) Aortic Root: 29.36 mm Volumes Left Atrial Volume (Systole) LA ESV Index: 20.10 mL/m2 Aortic Valve AoV Peak Douglas.: 1.31 m/s AO Peak Gr.: 6.84 mmHg LVOT Max P.24 mmHg AO Mean Gr.: 3.57 mmHg LVOT Mean P.22 mmHg LVOT Max V: 0.90 m/s AO V2 VTI: 29.47 cm LVOT Mean V: 0.49 m/s SHREYA (VTI): 2.18 cm2 LVOT V1 VTI: 19.16 cm Mitral Valve E/A Ratio: 1.17 [place] [address] 2 D/M-MODE ECHOCARDIOGRAM Name: GEE AMBROSE JR Room: [facility]#: [id number] Admission: 09/04/20 Attend Phys: Braeden Krueger, Discharge: Date of : 54 Date of Service: 09/04/20 0935 Report #: [id number] MV Decel. Time: 200.98 ms MV E Max Douglas.: 0.60 m/s MV PHT: 58.28 ms MVA (PHT): 3.77 cm2 TDI E/Lateral E': 5.00 E/Medial E': 7.50 Medial E' Douglas.: 0.08 m/s Lateral E' Douglas.: 0.12 m/s Pulmonary Valve PV Peak Douglas.: 1.10 m/s PV Peak Gr.: 4.87 mmHg Left Ventricle The left ventricle is normal size. There is normal LV segmental wall motion. Mild concentric left ventricular hypertrophy. Left ventricular systolic function is normal. The left ventricular ejection fraction is within the normal range. LVEF is 55-60%. The left ventricular diastolic function is normal. Right Ventricle The right ventricle is normal size. The right ventricular systolic function is normal. Atria The left atrium size is normal. The right atrium size is normal. Aortic Valve The aortic valve is normal in structure. No aortic regurgitation is present. There is no aortic valvular stenosis. Mitral Valve The mitral valve is normal in structure. There is trace mitral valve regurgitation noted. No evidence of mitral valve stenosis. Tricuspid Valve The tricuspid valve is normal in structure. There is trace tricuspid valve regurgitation noted. Pulmonic Valve The pulmonary valve is normal in structure. There is no pulmonic valvular regurgitation. Great Vessels The aortic root is normal in size. [place] [address] 2 D/M-MODE ECHOCARDIOGRAM Name: GEE AMBROSE JR Room: [facility]#: [id number] Admission: 09/04/20 Attend Phys: Braeden Krueger, Discharge: Date of : 54 Date of Service: 09/04/20 0935 Report #: [id number] visualized. Pericardium There is no pericardial effusion. <Conclusion> Mild concentric left ventricular hypertrophy. LVEF is 55-60%. <ELECTRONICALLY SIGNED> By: Reinaldo Urena MD, FACC 09/04/20934 4 4 Reinaldo Urena MD, [facility] /INF
== END ==
LOC: M.CRD 07:48
PROVIDERS: ATTEND Internal Medicine Cardiovascular Disease
DX: I48.91 Unspecified atrial fibrillation (principal)